=== PATIENT | female | born 1970 | race Caucasian/White ===

== ENCOUNTER 2019-02-01 00:36 | Emergency (ER) | payer MEDICARE, MEDICAID ==
[~2019-02-01] VITALS: Ht 162.6 cm; Wt 68.0 kg
[2019-02-01 01:28] LABS: URINE AMPHETAMINE SCREEN NEGATIVE (Neg); URINE BARBITUATE SCREEN NEGATIVE (Neg); URINE BENZODIAZEPINES SCREEN NEGATIVE (Neg); URINE CANNABINOID SCREEN POSITIVE (Neg); URINE COCAINE SCREEN NEGATIVE (Neg); URINE METHADONE SCREEN NEGATIVE (Neg); URINE OPIATE SCREEN NEGATIVE (Neg); URINE PHENCYCLIDINE SCREEN NEGATIVE (Neg)
[2019-02-01 01:38] VITALS: BP 124/70
== END 2019-02-01 04:18 | disposition home or self-care (01) ==
LOC: ER 00:37
DX: R07.9 Chest pain, unspecified (principal)
CPT/HCPCS: 36415; 80305; 84484; 93005; 99284